=== PATIENT | male | born 1980 | race Caucasian/White ===

== ENCOUNTER 2017-09-02 15:00 | Inpatient (IN) | payer OTHER, MEDICAID ==
[~2017-09-02] VITALS: Ht 170.2 cm; Wt 87.6 kg
--- NOTE | 2017-09-02 15:05 | NUR ---
PT SENT TO LOBBY TO WAIT FOR AVAILABLE BED. NO DISTRESS NOTED AND ALERT AND ORIENTED
--- NOTE | 2017-09-02 16:08 | NUR ---
PT IS A 37 YEAR OLD MALE, PRESENTS TO ED WITH C/O ABNORMAL LABS, INTERMITTENT BODY ACHES, AND INTERMITTENT HEADACHES X1 WEEK. PT REPORTS HAD BLOOD DRAW X2 DAYS AGO AND PCP INFORMED HIM THAT HIS HGB WAS 6.6. PT DENIES ANY N/V/D/C, FEVERS, DIZZINESS. PT REPORTS DRY COUGH X2 WEEKS. PT BREAHTING IS EVEN AND UNLABORED, NO S/S OF RESPIRATORY DISTRESS. SPEECH IS CLEAR AND APPROPRIATE. PT A/O X4. PT AWAITING MSE.
[2017-09-02 16:34] LABS: BASOPHIL % 0.9 % (0-2); PLATELET COUNT 246 x10^3mcL (130-400)
[2017-09-02 16:53] LABS: RED CELL DISTRIBUTION WIDTH 16.1 % (11.5-14.5)
[2017-09-02 16:54] LABS: ALBUMIN 3.4 g/dL (3.4-5.0); BILIRUBIN TOTAL 0.83 mg/dL (0.20-1.00); CALCIUM 9.1 mg/dL (8.5-10.1); CARBON DIOXIDE 35.5 mmol/L (21-32); POTASSIUM SERUM 3.6 mmol/L (3.5-5.1); TOTAL PROTEIN, SERUM 7.7 g/dL (6.4-8.2)
[2017-09-02 16:57] LABS: CREATININE SERUM 4.9 mg/dL (0.7-1.3)
[2017-09-02 17:11] LABS: rbc morphology (normal/abnorm) ABNORMAL (NORMAL)
[2017-09-02 17:12] LABS: target cell (codocyte) 1+
--- NOTE | 2017-09-02 18:17 | NUR ---
REPORT CALLED TO AGUSTIN DELANEY, SHE WILL ASSUME CARE PRIMARY RN POST TRASFNER.
--- NOTE | 2017-09-02 18:45 | NUR ---
PT SEEN IN BED, NEW ADMIT FROM ED. PT CAME IN DUE TO SOB AND WEAKNESS X2 WEEKS. PT IS AAOX4. DENIES HEADACHE/DIZZINESS. NO SOB NOTED AT THIS TIME, LUNG SOUNDS DIMINISHED ON AUSCULTATION. O2 SAT=98%, ON 2LPM/NC. STATED THAT HE GETS SOB WHEN LYING DOWN. W/ NON-PRODUCTIVE COUGH. DENIES CHEST PAIN/PRESSURE. DENIES ABDOMINAL DISCOMFORT. PT IS ANURIC. ON HD EVERY [id number], STATED THAT HE HAD DIALYSIS TODAY. W/ MILD SWELLING ON BLE. PT REFUSES TO HAVE HIS BILATERAL FEET CHECKED FOR SKIN ASSESSMENT. SIDE RAILS UPX2. CALL LIGHT ON REACH. DR. MOLINA AT BEDSIDE. FALY=006.0. PRIMARY NURSE AGUSTIN MADE AWARE.
[2017-09-02] MEDS ORDERED: SIMVASTATIN20 M1 PO (18:46)
[2017-09-02] MEDS ORDERED: DIALYVITE (18:50)
[2017-09-02] MEDS ORDERED: CARVEDILOL3.125 M1 PO (18:50)
[2017-09-02] MEDS ORDERED: AMLODIPINE BES2.5 M1 PO (18:51)
[2017-09-02] MEDS ORDERED: NATURE'S BLEND F1 MG PO (18:51)
[2017-09-02] MEDS ORDERED: HYDRALAZINE HY100 MG PO (18:52)
[2017-09-02 18:53] VITALS: BP 154/98
[2017-09-02] MEDS ORDERED: CATAPRES T0.3 MG/21 TD (18:53)
[2017-09-02 18:57] VITALS: Ht 170.2 cm; Wt 87.6 kg
[2017-09-02] MEDS ORDERED: CARVEDILOL25 M1 PO (18:58)
[2017-09-02] MEDS ORDERED: SENSIPAR60 M1 PO (18:58)
[2017-09-02] MEDS ORDERED: AMLODIPINE BESY10 M2 PO (18:58)
[2017-09-02] MEDS ORDERED: RENVELA800 M1 PO (18:59)
[2017-09-02 19:06] LABS: MAGNESIUM 2.3 mg/dL (1.8-2.4); PHOSPHOROUS 4.1 mg/dL (2.5-4.9)
[2017-09-02 19:07] LABS: CHOLESTEROL/HDL RATIO 1.9
[2017-09-02 19:16] LABS: FREE T4 1.27 ng/dL (0.76-1.46); FREE THYROXINE INDEX 4.4 ug/dL (1.4-4.5); T4(THYROXINE) 11.2 ug/dL (4.7-13.3)
--- NOTE | 2017-09-02 19:57 | NUR ---
RECEIVED PT FROM PREVIOUS SHIFT. AAOX4. TELE # 33. DENIES CP/PRESSURE AT THIS TIME. PULSES STRONG BILAT. MILD EDEMA NOTED TO BLE. LUNG SOUNDS CTA BILAT. DENIES SOB ON 2LNC. PT HAS NON PRODUCTIVE COUGH. BOWEL SOUNDS ACTIVE X4. GEN WEAKNESS PRESENT. AV SHUNT PRESENT TO LFA. RAC IV PATENT AND INTACT. BED IN LOWEST POSITION. CALL LIGHT WITHIN REACH. BLOOD PRODUCTS ARE READY IN LAB. WILL PREMEDICATE WITH BLOOD TRANSFUSION MEDICATIONS PRE TRANSFUSION. WILL CONTINUE TO MONITOR
[2017-09-02 20:04] LABS: TOTAL IRON BINDING CAPACITY 272 ug/dL (250-450)
[2017-09-02 20:10] LABS: RED BLOOD CELLS 2.26 M/mm3 (4.52-5.90)
--- NOTE | 2017-09-02 20:20 | NUR ---
LAB REPORTS HCT 20. BLOOD TRANSFUSION WILL BE INITIATED SHORTLY.
[2017-09-02 20:39] LABS: IRON 32 ug/dL (65-170)
[2017-09-02 21:22] VITALS: BP 148/84
--- NOTE | 2017-09-02 21:40 | NUR ---
PT BLOOD TRANSFUSION INTIATED. PRE TRANS VITALS: 98.9 75 153/90 18 98% 15 MINS VITALS: 98.9 76 154/87 18 100% PT REPORTS NO SOB OR SIGNS OF REACTIONS. WILL CONTINUE TO MONITOR
[2017-09-03] VITALS (8 sets, daily range): BP systolic 130–166; BP diastolic 82–109
--- NOTE | 2017-09-03 00:26 | NUR ---
POST INFUSION VITAL SIGNS: 98.5 20 156/95 (113) 98% 75. PT REPORTS FEELING OKAY. NO S/S OF ANY TRANSFUSION REACTIONS. WILL CONTINUE TO MONITOR
[2017-09-03 01:21] LABS: BASOPHIL % 0.7 % (0-2); PLATELET COUNT 219 x10^3mcL (130-400)
[2017-09-03 01:33] LABS: RED CELL DISTRIBUTION WIDTH 16.6 % (11.5-14.5)
--- NOTE | 2017-09-03 04:46 | NUR ---
PT RESTING SUPINE IN BED. RESPIRATIONS EVEN AND UNLABORED. DENIES SOB LONG HE IS SITTING UP. NO ACUTE DISTRESS NOTED AT THIS TIME. BED IN LOWEST POSITION. CALL LIGHT WITHIN REACH. WILL CONTINUE TO MONITOR
--- NOTE | 2017-09-03 06:54 | NUR ---
PT RESTING IN BED SUPINE. DENIES SOB AT THIS TIME. RESPIRATIONS EVEN AND UNLABORED. NO ACUTE DISTRESS NOTED. IV TO RAC PATENT AND INTACT. SALINE LOCKED AT THIS TIME. BED IN LOWEST POSITION. CALL LIGHT WITHIN REACH. WILL ENDORSE CARE TO ONCOMING SHIFT NURSE
--- NOTE | 2017-09-03 07:15 | NUR ---
PT WAS ENDORSE TO ME THIS MORNING. SLEEPING VERY COMFORTABLE. BREATHING EVEN AND UNLABORED ON 2L NC. NO RESP DISTRESS OR SOB NOTED. TELE 33 80 HR. IV TO THE RAC INTACT AND PATENT. HEPLOCKED. HD PT ON T--SAT, L LFA AV FISTULA INTACT, BRUIT PRESENT. CALL LIGHT IN REACH. WILL CONTINUE PLAN OF CARE.
--- NOTE | 2017-09-03 13:30 | NUR ---
PT IS SITTING UP IN BED WATCHING TV. DENIES ANY CHEST PAIN OR DISCOMFORT AT THIS TIME. TOLERATED 100% OF HIS LUNCH. CALL LIGHT IN REACH. WILL CONTINUE PLAN OF CARE.
--- NOTE | 2017-09-03 16:30 | NUR ---
PT WALKED THE HALLWAY X4 WITH BY HIS SIDE. DENIES ANY CHEST PAIN/ PRESSURE OR DISCOMFORT.
--- NOTE | 2017-09-03 18:26 | NUR ---
PT RESTING IN BED WITH BY HIS SIDE. VS STABLE. DENIES ANY CHEST PAIN/ PRESSURE OR DISCOMFORT. IV TO THE RAC PATENT AND INTACT/HEPLOCKED. PT TOLERATED 100% OF HIS DINNER. WILL ENDORSE PT TO INCOMING RN.
--- NOTE | 2017-09-03 19:29 | NUR ---
RECEIVED PT AMBULATING IN ROOM , AAOX4 NO ACUTE DISTRESS NOTED, LUNG SOUNDS CTA , ABD SOFT BS ACTIVE X4, PT HAS AV SHUNT TO LEFT ARM WITH GOOD BRUIT/THRILL, ON HD T-TH-S PT'S ANURIA , HL INTACT FLUSHING WELL . WILL CON'T TO MONITOR PT .TELE NUMBER 33 SHOWS NSR HR 88
--- NOTE | 2017-09-04 03:50 | NUR ---
PT'S IN BED WITH EYES CLOSED , TELE NSR .
[2017-09-04 05:34] VITALS: BP 168/99
--- NOTE | 2017-09-04 05:35 | NUR ---
BP 168/99 HR 79 SCHEDULE MEDS GIVEN , WILL CON'T TO MONITOR PT CLOSELY.
--- NOTE | 2017-09-04 06:24 | NUR ---
NO CHANGES OF CONDITION NOTED ALL DUE MEDS GIVEN NO REACTION NOTED , AV SHUNT WNL , HL INTACT FLUSHING WELL , TELE NSR .
[2017-09-04 06:28] VITALS: BP 156/88
[2017-09-04 06:49] LABS: CALCIUM 9.7 mg/dL (8.5-10.1); CARBON DIOXIDE 27.4 mmol/L (21-32); MAGNESIUM 2.6 mg/dL (1.8-2.4); PHOSPHOROUS 6.6 mg/dL (2.5-4.9); POTASSIUM SERUM 4.1 mmol/L (3.5-5.1)
[2017-09-04 06:51] LABS: CREATININE SERUM 9.5 mg/dL (0.7-1.3)
[2017-09-04 07:04] LABS: BASOPHIL % 0.6 % (0-2); PLATELET COUNT 260 x10^3mcL (130-400)
[2017-09-04 07:24] LABS: RED CELL DISTRIBUTION WIDTH 16.5 % (11.5-14.5)
--- NOTE | 2017-09-04 07:35 | NUR ---
RECEIVED IN ROOM JUST WALKING OUT OF THE RESTROOM. DENIES PAIN AT THIS TIME. NO APPARENT SIGNS OF ACUTE DISTRESS NOTED. IV TO RAC APPEARS PATENT AND INFUSING WELL. PT C/O COUGH WILL MINIMAL PRODUCTION. WILL COORDINATE WITH RESIDENT TO OBTAIN ORDER FOR COUGH. CALL LIGHT WITHIN REACH. BED IN LOWEST POSITION . ENCOURAGED TO CALL FOR ASSISTACNE WHEN NEEDED. WILL CONTINUE TO MONITOR
--- NOTE | 2017-09-04 08:00 | NUR ---
PATIENT REFUSED ECHOCADIOGRAM STATES HE IS NOT IN THE [facility]
[2017-09-04 09:26] VITALS: BP 156/94
[2017-09-04] MEDS ORDERED: FERROUS SULFAT325 M2 PO (09:52)
[2017-09-04] MEDS ORDERED: GOOD SENSE OMEP20 MG PO (09:59)
[2017-09-04 11:35] VITALS: BP 156/94
--- NOTE | 2017-09-04 12:50 | NUR ---
WENT OVER PT TEACHING AND DISCHARGE PAPERWORK. PT WAS ALERT AND ORIENTED AT THIS TIME, AND DENIES ANY PAIN. NO APPARENT SIGNS OF ACUTE DISTRESS NOTED. IV ACCESS REMOVED, PT TOLERATED WELL. LEFT WILL ALL BELONGINGS. ESCORT DOWN BY UNIT STAFF. TELE BOX CLEANED AND RETURNED TO MONITOR STATION
== END 2017-09-04 12:50 | disposition home or self-care (01) | DRG 811 ==
LOC: ED 15:00 → DU 17:58
PROVIDERS: Emergency Medicine; ADMIT Family Medicine
PROC: 30233N1 Transfusion of Nonautologous Red Blood Cells into Peripheral Vein, Percutaneous Approach (ICD-10-PCS; principal; 2017-09-02)
DX: D63.1 Anemia in chronic kidney disease (principal); N18.6 End stage renal disease; N17.0 Acute kidney failure with tubular necrosis; I50.43 Acute on chronic combined systolic (congestive) and diastolic (congestive) heart failure; I13.2 Hypertensive heart and chronic kidney disease with heart failure and with stage 5 chronic kidney disease, or end stage renal disease; I16.0 Hypertensive urgency; E83.39 Other disorders of phosphorus metabolism; E83.41 Hypermagnesemia; F12.10 Cannabis abuse, uncomplicated; Z99.2 Dependence on renal dialysis; Z87.442 Personal history of urinary calculi; Z68.30 Body mass index [BMI] 30.0-30.9, adult
CPT/HCPCS: 83880; 84439; J1750; J2916; J7030; P9016; Q0092; Q0163